=== PATIENT | female | born 1945 | race Caucasian/White ===

== ENCOUNTER 2016-11-12 11:02 | Day surgery (SDC) | payer MEDICARE, OTHER ==
[2016-11-12] MEDS ORDERED: MIDAZOLAM HCL 5 MG/5 ML VIAL ONE ×2 (11:11)
[2016-11-12] MEDS ORDERED: IV START KIT ONE (11:11)
[2016-11-12] MEDS ORDERED: LACTATED RINGERS 1,000 ML ONE (11:11)
[2016-11-12] MEDS ORDERED: FENTANYL 250 MCG/5 ML AMP ONE (11:11)
[2016-11-12] MEDS ORDERED: MIDAZOLAM HCL 5 MG/5 ML VIAL IV PRN (12:04)
[2016-11-12] MEDS ORDERED: FENTANYL 250 MCG/5 ML AMP IV PRN (12:04)
[2016-11-12] MEDS ORDERED: LACTATED RINGERS 1,000 ML IV SCH (12:15)
[2016-11-12] MEDS ORDERED: PROPOFOL 40 ML IV ONE ×2 (12:30)
== END 2016-11-12 13:39 | disposition home or self-care (01) ==
LOC: SDC 11:02
PROVIDERS: ATTEND Family Medicine
PROC: 0DJD8ZZ Inspection of Lower Intestinal Tract, Via Natural or Artificial Opening Endoscopic (ICD-10-PCS; principal; 2016-11-12)
DX: Z12.11 Encounter for screening for malignant neoplasm of colon (principal); K21.9 Gastro-esophageal reflux disease without esophagitis; K57.30 Diverticulosis of large intestine without perforation or abscess without bleeding; Z85.828 Personal history of other malignant neoplasm of skin; Z79.899 Other long term (current) drug therapy; Z85.038 Personal history of other malignant neoplasm of large intestine
CPT/HCPCS: J3010; J2250 ×2; J7120; G0105